=== PATIENT | male | born 1970 | race Caucasian/White ===

== ENCOUNTER 2021-09-13 05:11 | Emergency (ER) | payer MEDICAID ==
[~2021-09-13] VITALS: Ht 175.3 cm; Wt 81.6 kg
[~2021-09-13 05:11] MED LIST: MORP30TA63 PO; NORCO5 PO
[2021-09-13 05:30] VITALS: BP_SYST 156
[2021-09-13] MEDS ORDERED: GENTAMICIN SULFATE 0.3% Non-Formulary OPHT. 5 ML DROPS OP ONE (05:44)
[2021-09-13] MEDS ORDERED: GENTAMICIN SULFATE 0.1% TOPICAL OINT. 15 GM TP ONE (05:45)
[2021-09-13] MEDS ORDERED: DIPH-TET-PERTUS Vaccine 0.5 ML VIAL (ADACEL) I.M. ONE (05:45)
[2021-09-13] MEDS ORDERED: TETRACAINE HCL/PF 0.5% OPHTHALMIC DROPS 4 ML OP ONE (05:45)
[2021-09-13] MEDS ORDERED: FLUORESCEIN SODIUM 1 MG OPHTHALMIC STRIP OP ONE (05:45)
[2021-09-13] MEDS ORDERED: IBUP-1969 PO (06:33)
[2021-09-13] MEDS ORDERED: HYDR-3917 PO (06:33)
[2021-09-13 06:50] VITALS: BP_SYST 147
== END 2021-09-13 06:56 | disposition home or self-care (01) ==
LOC: SED 05:11
DX: H44.71 Retained (nonmagnetic) (old) foreign body in anterior chamber (principal); Z18.10 Retained metal fragments, unspecified; X58.XXXA Exposure to other specified factors, initial encounter; Y93.89 Activity, other specified; Y92.89 Other specified places as the place of occurrence of the external cause; Y99.8 Other external cause status
CPT/HCPCS: 90715; 99284

== ENCOUNTER 2022-01-10 13:32 | Emergency (ER) | payer MEDICAID ==
[~2022-01-10] VITALS: Ht 175.3 cm; Wt 86.2 kg
[~2022-01-10 13:32] MED LIST changes: +HYDR-3917 PO; +IBUP-1969 PO
[2022-01-10 14:35] VITALS: BP_SYST 132
[2022-01-10 15:46] VITALS: BP_SYST 132
== END 2022-01-10 15:46 | disposition home or self-care (01) ==
LOC: SED 13:32
DX: B34.9 Viral infection, unspecified (principal); Z20.822 Contact with and (suspected) exposure to COVID-19; Z79.899 Other long term (current) drug therapy
CPT/HCPCS: 36415; 99283